=== PATIENT | female | born 1975 | race Caucasian/White ===

== ENCOUNTER 2018-07-17 15:30 | Inpatient (IN) | payer OTHER ==
[2018-07-17] MEDS: ELECTROLYTE-148 SOLN 1,000 ML IV SCH (16:15)
[2018-07-17 16:18] VITALS: BMI 36.5
[2018-07-17] MEDS ORDERED: CITRIC ACID/SODIUM CITRATE 30 ML UNIT-DOSE CUP PO ONE (16:44)
[2018-07-17] MEDS ORDERED: ONDANSETRON 4 MG/2 ML VIAL IVPUSH PRN (16:50)
[2018-07-17] MEDS ORDERED: morphine SULFATE/Preservative Free 0.5 MG/ML (1cc Syringe) EP ONE (16:50)
--- NOTE | 2018-07-17 17:00 | HP ---
Past Medical History - Primary Care Physician PCP:: Paul Douglas - Admission Chief Complaint: 42yo P0 with at EGA 38w6d admitted for primary section due to transverse presentation and prior uterine surgery. History of Present Illness: complicated by: 1. AMA 2. Fetus with transverse lie 3. Prior uterine surgery 4. IVF 5. Obesity 6. Hypothyroidism 7. Pituitary microadenoma 8. Anticardilipin Ab elevated "low-medium positive" 9. Vag GBS negative. History Source: Patient, Medical Record Limitations to Obtaining History: No Limitations - Past Medical History CLINICAL PHARMACY TECHNICIAN: No: Alzheimer's, CVA, Dementia, Migraine, Multiple Sclerosis, Peripheral Neuropathy, Parkinson's, Seizure, Syncope, TIA, Vertigo, Other Cardiovascular: No: AFIB, Aneurysm, Aortic Insufficiency, Aortic Stenosis, CAD, CHF, Deep Vein Thrombosis, HTN, Hyperlipdemia, PA, Mitral Insufficiency, Mitral Stenosis, Murmur, Pulmonary Hypertension, Other Pulmonary: No: Asthma, Bronchitis, Cancer, COPD, O2 Dependent, Pneumonia, Previously Intubated, Pulmonary Embolus, Pulmonary Fibrosis, Sleep Apnea, Other Gastrointestinal: No: Ascites, Cancer, Constipation, Crohn's Disease, Diverticulitis, Diverticulosis, Esophageal Varices, Gastritis, GERD, GI Bleed, Hemorrhoids, Hiatal Hernia, Inflamatory Bowel Disease, Irritable Bowel Disease, Pancreatitis, Peptic Ulcer Disease, Ulcerative Colitis, Other Hepatobiliary: No: Cirrhosis, Cholelithiasis, Cholecystitis, Choledocholithiasis , Hepatitis A, Hepatitis B, Hepatitis C, Other Renal/: No: Renal Failure, Renal Inusuff, BPH, Cancer, Hematuria, Hemodialysis , Neurogenic Bladder, Renal Calculi, UTI, Other Reproductive: No: Ectopic , Endometriosis, Fibroids, PID, Polycystic Ovary Syndrome, Postmenopausal, Other ...: 3 ...Para: 0 ...Term: 0 ...: 0 ...Spon : 2 ...Induced : 0 ...Multiple Gestation: 0 ...LMP: 10/19/17 ... Weeks Gestation by Dates: 38.6 ...EDC by Dates: 07/26/18 ...EDC by Sono: 07/25/18 Heme/Onc: No: Anemia, B12 Deficiency, Bleeding Disorder, Cancer, Current Chemotherapy, Current Radiation Therapy, Hemochromatosis, Hypercoaguable State, Myeloproliferative Synd, Sickle Cell Disease, Sickle Cell Trait, Thrombocytopenia, Other Infectious Disease: No: AIDS, C-Diff, Herpes Zoster, HIV, MRSA, STD's, Tuberculosis, VREF, Other Psych: No: Addictions, Anxiety, Bipolar, Depression, Panic, Psychosis, Schizophrenia, Other Musculoskeletal: No: Bursitis, Chronic low back pain, Hemiparesis, Hemiplegia, Osteoarthritis, Paraplegia, Other Rheumatology: No: Fibromyalgia, Gout, Lupus, Rheumatoid Arthritis, Sarcoidosis, Vasculitis, Other ENT: No: Allergic Rhinitis, Sinusitis, Other Endocrine: No: [place]'s Disease, Henderson's Disease, Diabetes Insipidus, Diabetes Mellitus, Hyperparathyroidism, Hyperthyroidism, Hypothyroidism, Osteopenia, SIADH, Other Dermatology: No: Basal Cell, Cellulitis, Eczema, Melanoma, Psoriasis, Squamous Cell, Other - Past Surgical History Hx Myomectomy: No Hx Transabdominal Cerclage: No Additional Surgical History: Hysteroscopic resection of large uterine septum. IVF - Smoking History Smoking history: Never smoked Have you smoked in the past 12 months: No - Alcohol/Substance Use Hx Alcohol Use: No History of Substance Use: reports: None - Social History Usual Living Arrangement: Yes: With Spouse ADL: Independent Occupation: [employer] worker History of Recent Travel: No Home Medications - Allergies Allergies/Adverse Reactions: Allergies Allergy/AdvReac Type Severity Reaction Status Date / Time No Known Allergies Allergy Verified 07/17/18 16:38 - Home Medications Home Medications: Ambulatory Orders One Tablet 1 tab PO DAILY 07/17/18 Synthroid 1 tab PO DAILY 07/17/18 Family Disease History - Family Disease History Family Disease History: CA: Father (prostate), Other: Sister (HTN) Review of Systems - Review of Systems Constitutional: reports: No Symptoms Eyes: reports: No Symptoms HENT: reports: No Symptoms Neck: reports: No Symptoms Cardiovascular: reports: No Symptoms Respiratory: reports: No Symptoms Gastrointestinal: reports: No Symptoms Genitourinary: reports: No Symptoms Breasts: reports: No Symptoms Reported Musculoskeletal: reports: No Symptoms Integumentary: reports: No Symptoms Neurological: reports: No Symptoms Endocrine: reports: No Symptoms Hematology/Lymphatic: reports: No Symptoms Psychiatric: reports: No Symptoms Pain Intensity: 0 Physical Exam - Maternity Vital Signs: Vital Signs Temperature 97.8 F 01/16/19 15:30 Pulse Rate 76 07/17/18 15:30 Respiratory Rate 20 07/17/18 15:30 Blood Pressure 132/65 07/17/18 15:30 O2 Sat by Pulse Oximetry (%) Constitutional: Yes: Well Nourished, No Distress, Calm Eyes: Yes: WNL, Conjunctiva Clear HENT: Yes: WNL, Atraumatic, Normocephalic Neck: Yes: WNL, Supple, Trachea Midline Cardiovascular: Yes: WNL, Regular Rate and Rhythm Lungs: Clear to auscultation, Normal air movement - Abdominal Exam/OB Fundal Height: 40 Number of Fetuses: Single Presentation: Vertex Contractions: Yes Regularity: Irritability Intensity: Unaware Monitor Mode: External Heart Rate (range): 120 Heart Rate Location: Midline Category: I Accelerations: Uniform Decelerations: None - Vaginal Exam/OB Vaginal Bleediing: No Speculum Exam: No Presentation: Transverse/Shoulder - Physical Exam Musculoskeletal: Yes: WNL Extremities: Yes: WNL Edema: No Integumentary: Yes: WNL Deep Tendon Reflex Grade: Normal +2 ...Motor Strength: WNL Psychiatric: Yes: WNL, Alert, Oriented Hemorrhage Risk Assessment - Risk Factors Medium Risk Factors: Yes: Prior , uterine surgery,or multiple laparotomies High Risk Factors: Yes: None Risk Score: 1 Risk Level: Medium Risk Imaging - Results Ultrasound: Report Reviewed Assessment/Plan 42yo P0 with at EGA 38w6d admitted for primary section due to transverse presentation and prior uterine scar/surgery. We discussed the risks and benefits of C/S at length, including but not limited to scarring, pain, bleeding, infection, injury to underlying organs and structures, need for additional surgery to repair/treat any problems or complications, complications/injuries, etc. The pt verbalized her understanding and requested to proceed with surgery. The pt is aware that all surgeries have risks and no guarantees can be provided.
[2018-07-17] MEDS ORDERED: OXYTOCIN 20 UNITS in 0.9% NS 20 UNIT/1,000 ML INFUS.BAG IV ONE ×2 (17:02→23:46)
[2018-07-17] MEDS ORDERED: ceFAZolin SODIUM 1 GM VIAL ONE (17:17)
[2018-07-17] MEDS ORDERED: ePHEDrine SULFATE 50 MG/1 ML AMPULE ONE (17:20)
[2018-07-17] MEDS ORDERED: OXYTOCIN 10 UNITS/ML VIAL ONE (17:34)
[2018-07-17] MEDS ORDERED: BENZOCAINE 20% 57 GM BOTTLE TP PRN (18:28)
[2018-07-17] MEDS ORDERED: SENNOSIDES/DOCUSATE COMBO (SENNA PLUS) TABLET (UD) PO PRN (18:28)
[2018-07-17] MEDS ORDERED: IBUPROFEN 800 MG/8 ML IJ IVPB PRN (18:28)
[2018-07-17] MEDS ORDERED: WITCH HAZEL 50% (TUCKS) 40 PAD/JAR PAD TP PRN (18:28)
[2018-07-17] MEDS ORDERED: METHYLERGONOVINE MALEATE 0.2 MG/1 ML AMP IM PRN (18:28)
[2018-07-17] MEDS ORDERED: BENZOCAINE 28 GM HEMORRHOIDAL OINTMENT TP PRN (18:28)
[2018-07-17] MEDS: OXYTOCIN 20 UNITS in 0.9% NS 20 UNIT/1,000 ML INFUS.BAG IV SCH (18:30)
--- NOTE | 2018-07-17 18:50 | OP ---
Operative Note - Note: Operative Date: 07/17/18 Pre-Operative Diagnosis: at EGA 38w6d. Transverse presentation. AMA. Prior Uterine scar Operation: Primary LT C/S Findings: Live baby girl in breech presentation, no meconium, 9/9. Normal tubes, ovaries, uterus Post-Operative Diagnosis: Same as Pre-op Surgeon: Paul Douglas Sample Cutter: Gwendolyn Plascencia Anesthesiologist/LINE CREW SUPERVISOR: Armando Long Anesthesia: Spinal Specimens Removed: Placenta Estimated Blood Loss (mls): 700 Drains & Tubes with Location: Abdullahi cath Drains, Volume Out (mls): 75 Blood Volume Replaced (mls): 0 Fluid Volume Replaced (mls): 1,300 Operative Report Dictated: Yes
[2018-07-18] MEDS ORDERED: IBUPROFEN 600 MG TABLET (FP) PO ONE (01:16)
[2018-07-18] MEDS ORDERED: ACETAMINOPHEN 325 MG TABLET (FP) ONE (01:17)
[2018-07-18] MEDS ORDERED: IBUPROFEN 800 MG/8 ML IJ IVPB ONE (01:18)
[2018-07-18] MEDS: LEVOTHYROXINE NA 75 MCG TABLET (FP) PO SCH (07:00)
--- NOTE | 2018-07-18 07:15 | PN ---
Post Progress Note - Subjective Subjective: Patient without acute complaints. Tolerating clears, without nausea or vomiting No voiding, fulton in place draining clear fluid No ambulation or flatus yet. Denies fevers or chills. Pain well controlled. Type of Delivery: Primary C/S Vital Signs: Vital Signs Temperature 98.6 F 07/18/18 06:00 Pulse Rate 78 07/18/18 06:00 Respiratory Rate 20 07/18/18 06:00 Blood Pressure 94/50 L 07/18/18 06:00 O2 Sat by Pulse Oximetry (%) 99 07/17/18 19:15 Breast Exam: Yes: Soft Uterus: Yes: Fundus Firm, Fundus @ umbilicus Abdomen/GI: Yes: Abdomen soft, Abdominal Distention, Tender, Passing flatus, Tolerating PO Lochia: Yes: Serosa Lochia, amount: Small Extremities: Yes: Calves non-tender, Edema (trace) Assessment/Plan 42 yo POD # 1 s/p CD, afebrile, vital signs stable, doing well 1. Continue routine postoperative care. 2. Follow up AM CBC 3. Rh positive status, no rhogam indicated. 4. Encourage ambulation and incentive spirometer use 5. Continue oral pain medication 6. Anticipate discharge home postoperative day #3 or #4
[2018-07-18 07:24] LABS: BASO % 0.1 % (0-2.0); EOS % 0.5 % (0-4.5); HEMATOCRIT 30.5 % (32.4-45.2); HEMOGLOBIN 10.4 GM/dL (10.7-15.3); LYMPH % 19.9 % (8-40); MCH 28.6 pg (25.7-33.7); MEAN PLT VOLUME 9.1 fl (7.5-11.1); MONO % 5.7 % (3.8-10.2); NEUT % 73.8 % (42.8-82.8); PLATELET COUNT 216 K/MM3 (134-434); RBC 3.63 M/mm3 (3.60-5.2); RDW 13.7 % (11.6-15.6); WHITE BLOOD COUNT 9.9 K/mm3 (4.0-10.0)
[2018-07-18] MEDS ORDERED: SYNTHROID PO SCH (10:00)
--- NOTE | 2018-07-18 10:00 | OP ---
DATE OF OPERATION: 07/17/2018 PREOPERATIVE DIAGNOSES: at estimated gestational age of 38 weeks and 6 days, fetus in transverse lie, advanced maternal age, prior uterine scar and surgery, in vitro fertilization , obesity, hypothyroidism, anticardiolipin antibody positive. POSTOPERATIVE DIAGNOSES: at estimated gestational age of 38 weeks and 6 days, fetus in breech lie, advanced maternal age, prior uterine scar and surgery, in vitro fertilization , obesity, hypothyroidism, anticardiolipin antibody positive. PROCEDURE: Primary low transverse section via Pfannenstiel skin incision. SURGEON: Paul Douglas MD SPIRITS MODEL Gwendolyn Plascencia MD ANESTHESIOLOGIST: Armando Long MD ANESTHESIA: Spinal. COMPLICATIONS: None. ESTIMATED BLOOD LOSS: 700 mL. INTRAVENOUS FLUIDS: 1300 mL. URINE OUTPUT: Clear urine 75 mL at the end of the procedure. PATHOLOGY: Placenta. FINDINGS: Live baby girl in breech presentation. No meconium in amniotic fluids. Normal uterus, fallopian tubes and ovaries. Apgars 9, 9. Baby's weight 7 pounds 3 ounces. PROCEDURE: The patient was met preoperatively. Risks, benefits, alternatives of surgery were discussed in details. All questions were answered. The patient was brought to the OR with IV running. She was placed on the surgical table in the sitting position. The spinal anesthesia was achieved without difficulty. The patient was then placed in a supine position with a leftward tilt. She was prepped and draped in the usual sterile fashion. A Abdullahi catheter was inserted into bladder and left to drain to gravity. The surgeons then proceeded with the operation. A timeout procedure was conducted as per standard protocol. A Pfannenstiel skin incision was then made with a knife approximately 2 cm above the pubic symphysis. The incision was carried down to the level of fascia. The fascia was incised in the midline. The incision was extended bilaterally using Todd scissors. The fascia was then dissected away from the rectus muscles superiorly and inferiorly. The rectus muscles were in the midline. The peritoneum was identified and entered sharply. The peritoneal incision was expanded superiorly and inferiorly using Metzenbaum scissors. The bladder peritoneum was then dissected away from the lower uterine segment. The bladder was reflected downwards. The uterus was incised transversely in the lower uterine segment. The uterine incision was extended bilaterally using bandage scissors. The amniotic bag was ruptured with clear amniotic fluid noted. The baby was then delivered from breech presentation without complications. The placenta was then delivered manually and without complications. The uterus was cleared of all clots and debris. The uterine incision was repaired using a 0 Biosyn suture. Good hemostasis was noted. The uterine incision was then imbricated using a secondary layer of closure with a 0 Biosyn suture. Once again good hemostasis was noted. The bladder peritoneum was approximated using a 0 Biosyn suture. The operative site was irrigated using copious amounts of normal saline. Once the saline was aspirated good hemostasis was confirmed. The abdominal peritoneum was closed using a 2-0 chromic suture. The rectus muscles were approximated in the midline using several interrupted 2-0 chromic sutures. The fascia was closed using a 0 Vicryl suture with a running stitch. The Sebastian fascia and subcutaneous adipose tissues were approximated with several interrupted 2-0 chromic sutures in order to eliminate space. The skin was then closed using a 3-0 Vicryl suture with a subcutaneous stitch. Sponge, lap and needle counts were correct. The patient tolerated procedure well and was transferred to recovery room in stable condition and awake. Wendy [id number]
[2018-07-18] MEDS ORDERED: OXYTOCIN 20 UNITS in 0.9% NS 20 UNIT/1,000 ML INFUS.BAG IV ONE ×2 (11:12)
[2018-07-18] MEDS: PRENATAL VITAMINS W/ FOLIC ACID TABLET (FP) PO SCH (12:08)
--- NOTE | 2018-07-18 12:10 | PN ---
Progress Note (short form) - Note Progress Note: Anesthesia post op note. POD#1. S/P under spinal with duramorph. VSS. No apparent post anesthesia complications.Signed off.
[2018-07-18] MEDS: ENOXAPARIN NA (PORCINE) 40 MG/0.4 ML DISP.SYRIN SQ SCH (12:12)
[2018-07-18] MEDS ORDERED: TUBERCULIN PPD 5 TU/0.1ML SYRINGE (IN PATIENT USE ONLY) ID ONE (15:00)
[2018-07-18] MEDS: ACETAMINOPHEN 325 MG TABLET (FP) PO PRN (15:08)
[2018-07-18] MEDS: oxyCODONE HCL 5 MG TABLET PO PRN ×2 (15:10→19:59)
[2018-07-18] MEDS: SIMETHICONE 80 MG TAB.CHEW (FP) PO PRN ×2 (16:42→19:59)
[2018-07-18] MEDS ORDERED: BISACODYL 10 MG SUPP.RECT RC PRN (18:28)
[2018-07-18] MEDS: IBUPROFEN 600 MG TABLET (FP) PO PRN (20:00)
[2018-07-19] MEDS: oxyCODONE HCL 5 MG TABLET PO PRN ×6 (05:37→23:12)
[2018-07-19] MEDS: IBUPROFEN 600 MG TABLET (FP) PO PRN ×4 (05:38→17:49)
[2018-07-19] MEDS: SIMETHICONE 80 MG TAB.CHEW (FP) PO PRN ×4 (05:38→17:49)
[2018-07-19] MEDS: LEVOTHYROXINE NA 75 MCG TABLET (FP) PO SCH (06:31)
--- NOTE | 2018-07-19 07:46 | PN ---
Progress Note (short form) - Note Progress Note: pod 2 doing well, no c/o, ambulating CBC, BMP 07/18/18 06:00 Last Vital Signs Temp Pulse Resp BP Pulse Ox 98.8 F 77 18 123/71 99 07/18/18 22:00 07/18/18 22:00 07/18/18 22:00 07/18/18 22:00 07/17/18 19:15 abdomen soft, no distension . no cva incision dry, clean no calf tenderness lochia mild plan ambulate , cbc in am pain management
[2018-07-19] MEDS: ENOXAPARIN NA (PORCINE) 40 MG/0.4 ML DISP.SYRIN SQ SCH (10:40)
[2018-07-19] MEDS: PRENATAL VITAMINS W/ FOLIC ACID TABLET (FP) PO SCH (10:41)
[2018-07-19] MEDS: ELECTROLYTE-148 SOLN 1,000 ML IV SCH (19:27)
[2018-07-19] MEDS: OXYTOCIN 20 UNITS in 0.9% NS 20 UNIT/1,000 ML INFUS.BAG IV SCH (19:27)
[2018-07-19] MEDS: ACETAMINOPHEN 325 MG TABLET (FP) PO PRN (23:11)
--- NOTE | 2018-07-20 03:27 | PN ---
Post Progress Note - Subjective Subjective: Patient without acute complaints. Reports tolerating oral intake without nausea or vomiting. Ambulating without dizziness. Denies fevers or chills. Pain well controlled with oral pain medication. without difficulty. Passing flatus. Post Day: 3 Type of Delivery: Primary C/S Vital Signs: Vital Signs Temperature 97.4 F L 07/19/18 22:00 Pulse Rate 69 07/19/18 22:00 Respiratory Rate 18 07/19/18 22:00 Blood Pressure 120/73 07/19/18 22:00 O2 Sat by Pulse Oximetry (%) 99 07/17/18 19:15 Breast Exam: Yes: Engorged Uterus: Yes: Fundus Firm, Fundus below umbilicus Incision: Yes: Sutures intact. No: Redness, Oozing Abdomen/GI: Yes: Abdomen soft, Tender (mild incisional), Passing flatus, Tolerating PO. No: Abdominal Distention Lochia: Yes: Serosa Lochia, amount: Small Extremities: Yes: Calves non-tender Activity: Ambulating - Labs Labs: CBC WBC 9.9 K/mm3 (4.0-10.0) 07/18/18 06:00 RBC 3.63 M/mm3 (3.60-5.2) 07/18/18 06:00 Hgb 10.4 GM/dL (10.7-15.3) L 07/18/18 06:00 Hct 30.5 % (32.4-45.2) L D 07/18/18 06:00 MCV 84.0 fl (80-96) 07/18/18 06:00 MCH 28.6 pg (25.7-33.7) 07/18/18 06:00 MCHC 34.0 g/dl (32.0-36.0) 07/18/18 06:00 RDW 13.7 % (11.6-15.6) 07/18/18 06:00 Plt Count 216 K/MM3 (134-434) 07/18/18 06:00 MPV 9.1 fl (7.5-11.1) 07/18/18 06:00 Absolute Neuts (auto) 7.3 K/mm3 (1.5-8.0) 07/18/18 06:00 Neutrophils % 73.8 % (42.8-82.8) 07/18/18 06:00 Lymphocytes % 19.9 % (8-40) 07/18/18 06:00 Monocytes % 5.7 % (3.8-10.2) 07/18/18 06:00 Eosinophils % 0.5 % (0-4.5) 07/18/18 06:00 Basophils % 0.1 % (0-2.0) 07/18/18 06:00 Nucleated RBC % 0 % (0-0) 07/18/18 06:00 Assessment/Plan 42 yo POD # 3 s/p CD, afebrile, vital signs stable, doing well 1. Patient stable for discharge home today. 2. Patient encouraged to contact MD for: - Severe pain not controlled by oral pain medication - Fevers or chills - Nausea or vomiting, intolerance of oral intake - Incision redness, tenderness or discharge 3. Patient to follow up in office in 1-2 weeks for incision check, 4-6 weeks for visit
[2018-07-20] MEDS: oxyCODONE HCL 5 MG TABLET PO PRN ×2 (05:34→09:45)
[2018-07-20] MEDS: ACETAMINOPHEN 325 MG TABLET (FP) PO PRN (05:35)
[2018-07-20] MEDS: LEVOTHYROXINE NA 75 MCG TABLET (FP) PO SCH (06:27)
[2018-07-20 08:14] LABS: BASO % 0.2 % (0-2.0); LYMPH % 30.6 % (8-40); MCH 28.9 pg (25.7-33.7); MCHC 34.4 g/dl (32.0-36.0); MEAN PLT VOLUME 8.5 fl (7.5-11.1); NEUT % 60.2 % (42.8-82.8); PLATELET COUNT 221 K/MM3 (134-434); RBC 3.45 M/mm3 (3.60-5.2); RDW 13.8 % (11.6-15.6); WHITE BLOOD COUNT 7.6 K/mm3 (4.0-10.0)
[2018-07-20 08:48] VITALS: BP 118/69; PULSE 62; TEMP 97.7
[2018-07-20] MEDS: SIMETHICONE 80 MG TAB.CHEW (FP) PO PRN (09:44)
[2018-07-20] MEDS: PRENATAL VITAMINS W/ FOLIC ACID TABLET (FP) PO SCH (09:44)
[2018-07-20] MEDS: ENOXAPARIN NA (PORCINE) 40 MG/0.4 ML DISP.SYRIN SQ SCH (09:44)
[2018-07-20] MEDS: IBUPROFEN 600 MG TABLET (FP) PO PRN (09:46)
--- NOTE | 2018-07-29 18:01 | PATH ---
Surgical Pathology Report Patient Name: CRISTAL MACKEY Med. Rec. #: [id number] /Age/Gender: 1975 (Age: 42) / F Account: [id number] Location: [facility] OBS/HEEL SEATER Taken: 07/17/2018 Received: 07/18/2018 Reported: 07/29/2018 Physicians: Paul Douglas M.D. Specimen(s) Received PLACENTA Clinical History , term , IVF Final Diagnosis PLACENTA: THIRD TRIMESTER PLACENTA. TRIVASCULAR CORD. MEMBRANES WITH NO DIAGNOSTIC ABNORMALITIES. Electronically Signed Belem Amos M.D. Gross Description The specimen is received fresh labeled placenta and is a 316 gram, 12.5 x 11.0 x 3.3 cm. placenta with attached membranes and umbilical cord. The attached membranes are heredia, translucent with focal opacities and insert marginally. The umbilical cord measures 14 cm. in length and averages 1.2 cm. in diameter. The cord displays velamentous insertion. No true knots or strictures are identified. Cut surface of the umbilical cord reveals 3 vessels. The surface is godinez-blue with minimal fibrin deposition and appropriate caliber vessels. The maternal surface is red-brown with focal defects. Sectioning reveals red-brown, spongy parenchyma. No lesions are identified. [employer] sections are submitted in three cassettes as follows: 1- membrane rolls and umbilical cord; 2-3- full thickness sections of placenta. /07/26/2018 saudi07/26/2018
== END 2018-07-20 12:15 | disposition home or self-care (01) | DRG 788 ==
LOC: JLDR 15:30 → J3W 07-18 11:50 → UNDODISIN 07-20 09:30
PROVIDERS: ADMIT Obstetrics & Gynecology; ATTEND Obstetrics & Gynecology
PROC: 10D00Z1 Extraction of Products of Conception, Low, Open Approach (ICD-10-PCS; principal; 2018-07-17)
DX: O32.2XX0 Maternal care for transverse and oblique lie, not applicable or unspecified (principal); O99.283 Endocrine, nutritional and metabolic diseases complicating pregnancy, third trimester; E03.9 Hypothyroidism, unspecified; O99.213 Obesity complicating pregnancy, third trimester; E66.9 Obesity, unspecified; O26.893 Other specified pregnancy related conditions, third trimester; D35.2 Benign neoplasm of pituitary gland; Z3A.39 39 weeks gestation of pregnancy; Z37.0 Single live birth
CPT/HCPCS: 36415; 85025; 88307-TC